=== PATIENT | female | born 1945 | race Caucasian/White ===

== ENCOUNTER 2017-09-01 05:14 | Day surgery (SDC) | payer OTHER ==
[~2017-09-01] VITALS: Ht 160 cm; Wt 88.9 kg
--- NOTE | ~2017-09-01 | O ---
[facility] [place] [address] OPERATIVE REPORT Name: JULIEN PICKENS Room #: 150-4 [facility] M..#: [id number] Admission: 09/01/17 Attend Phys: Trell Fan MD Discharge: Date of : 49 Report #: [id number] THIS REPORT FOR: //name// CC: Kolton Fan DATE OF SERVICE: 09/01/2017 PREOPERATIVE DIAGNOSIS: Chronic otitis media with effusion. POSTOPERATIVE DIAGNOSIS: Chronic otitis media with effusion. PROCEDURE: Right myringotomy with placement of a tiny T-tube, right eustachian tube dilation, endoscopic. SURGEON: Trell Fan M.D. ANESTHESIA: General LMA. INDICATIONS: See H and P. TECHNIQUE: After obtaining consent, she was brought to the operating suite, appropriate time out was performed. General LMA anesthesia was obtained. Bed was turned 90 degrees. The right side of the nares was prepped with Afrin-soaked cottonoids to vasoconstrict the inferior middle turbinates. Using a 0 degree endoscope, it was advanced through the nares, into the nasopharynx where the eustachian tube opening was visualized on the lateral anterior wall of the nasopharynx. The Entellus eustachian tube dilation device was advanced through the nares into the nasopharynx and the tip was advanced quite easily into the opening of the eustachian tube and without any resistance, was able to place it up to the second rasheed. The balloon was then advanced over the guide. The balloon was then inflated to appropriate setting and left in place for 2 full minutes. Deflation was then accomplished. The balloon was retracted back in the device and the probe tip was gently removed. There was no substantial evidence of any mucus within the eustachian tube opening itself. There was no bleeding noted. An Afrin-soaked cottonoids left in the nares until the end of the procedure. Operating scope was brought into the field. The right ear canal was intubated. Debris was removed. An anterior inferior radial myringotomy was performed with a small amount of clear effusion evacuated. Tiny T-tube was placed through the incision. Cipro ophthalmic drops were placed in the external canal and a cotton ball in the meatal opening. I then removed the cottonoid from her nares. She was allowed to awake from anesthesia and went to recovery room in stable condition. [address] [address] OPERATIVE REPORT Name: JULIEN PICKENS Room #: 150-4 [facility] M.R.#: [id number] Admission: 09/01/17 Attend Phys: Trell Fan MD Discharge: Date of : 49 Report #: [id number] ESTIMATED BLOOD LOSS: Zero. By: [id number] Trell Fan MD /nt
[~2017-09-01 05:14] MED LIST: FLAX, FISH & B1 EACH PO; PROBIOTIC1 EAC1 PO
[2017-09-01 11:20] VITALS: BP 145/80
[2017-09-01 12:35] VITALS: BP 145/80
== END 2017-09-01 13:20 | disposition home or self-care (01) ==
LOC: OR 05:14 → TBA 05:15 → OR 09:35
DX: H65.491 Other chronic nonsuppurative otitis media, right ear (principal); Z88.8 Allergy status to other drugs, medicaments and biological substances; Z88.0 Allergy status to penicillin; Z90.710 Acquired absence of both cervix and uterus
CPT/HCPCS: 50010; 50101; 50386; 50398; 50849; 51237; 51305; 62110; 62900; 64037